=== PATIENT | female | born 1995 | race Caucasian/White ===

== ENCOUNTER 2019-01-17 22:09 | Emergency (ER) | payer MEDICAID ==
[~2019-01-17] VITALS: Ht 162.6 cm; Wt 111.0 kg
[~2019-01-17 22:09] MED LIST: ISON300T19; MINO50CA5; PYRI100T2
[2019-01-18 03:58] LABS: BASOPHILS % 0.5 % (0.0-2.0); EOSINOPHILS % 1.7 % (0.0-5.0); HEMATOCRIT. 37.4 % (36.0-48.0); HEMOGLOBIN. 12.3 g/dL (12.0-16.0); LYMPHOCYTES % 30.8 % (20.0-50.0); MEAN CORPUSCULAR HEMOGLOBIN 26.1 pg (28.0-32.0); MEAN CORPUSCULAR VOLUME 79.2 fL (81.0-99.0); MEAN PLATELET VOLUME 7.7 fl (7.4-10.4); MONOCYTES % 6.5 % (2.0-8.0); NEUTROPHILS % 60.5 % (40.0-76.0); PLATELET 252 x1000/uL (130-400); RED BLOOD CELL COUNT 4.72 mill/uL (4.2-5.4); RED CELL DISTRIBUTION WIDTH 14.6 % (11.6-14.6)
[2019-01-18 04:03] LABS: CHLORIDE 107 mEq/L (98-107); INR 1.1; PROTHROMBIN TIME 10.9 sec (9.6-11.0)
[2019-01-18 05:04] LABS: CLARITY URINE CLOUDY (CLEAR); COLOR URINE YELLOW (YELLOW); KETONES URINE TRACE (NEGATIVE); LEUKOCYTE ESTERASE URINE NEGATIVE (NEGATIVE); NITRITE URINE NEGATIVE (NEGATIVE); OCCULT BLOOD URINE NEGATIVE (NEGATIVE); PROTEIN URINE TRACE (NEGATIVE); SPECIFIC GRAVITY URINE 1.045 (1.005-1.030)
[2019-01-18 06:30] VITALS: BP 116/51
== END 2019-01-18 06:34 | disposition home or self-care (01) ==
LOC: ER 22:09
DX: K52.9 Noninfective gastroenteritis and colitis, unspecified (principal); Z79.899 Other long term (current) drug therapy
CPT/HCPCS: 36415; 74176; 81003; 81025; 99284

== ENCOUNTER 2019-11-28 09:51 | Emergency (ER) | payer MEDICAID, OTHER ==
[~2019-11-28] VITALS: Ht 162.6 cm; Wt 87.0 kg
[~2019-11-28 09:51] MED LIST changes: +PYRI100T17; -PYRI100T2
[2019-11-28 10:55] LABS: CLARITY URINE CLOUDY (CLEAR); COLOR URINE YELLOW (YELLOW); KETONES URINE NEGATIVE (NEGATIVE); LEUKOCYTE ESTERASE URINE 3+ (NEGATIVE); NITRITE URINE NEGATIVE (NEGATIVE); OCCULT BLOOD URINE 3+ (NEGATIVE); PROTEIN URINE 1+ (NEGATIVE); SPECIFIC GRAVITY URINE 1.011 (1.005-1.030); UROBILINOGEN URINE 0.2 E.U./dL (0.2-1.0)
[2019-11-28 12:50] VITALS: BP 123/67
== END 2019-11-28 12:53 | disposition home or self-care (01) ==
LOC: ER 09:51
DX: N39.0 Urinary tract infection, site not specified (principal); R00.0 Tachycardia, unspecified
CPT/HCPCS: 81003; 81025; 87077; 87186; 99283

== ENCOUNTER 2020-03-26 12:05 | Emergency (ER) | payer MEDICAID, OTHER ==
[~2020-03-26] VITALS: Ht 160 cm; Wt 90.7 kg
[2020-03-26 13:16] VITALS: BP 133/86
== END 2020-03-26 13:17 | disposition home or self-care (01) ==
LOC: ER 12:05
DX: B34.9 Viral infection, unspecified (principal); N64.89 Other specified disorders of breast; R03.0 Elevated blood-pressure reading, without diagnosis of hypertension
CPT/HCPCS: 99282

== ENCOUNTER 2021-02-20 08:37 | Emergency (ER) | payer SELFPAY ==
[~2021-02-20] VITALS: Ht 162.6 cm; Wt 105.0 kg
[2021-02-20 09:17] LABS: BASOPHILS % 0.6 % (0.0-2.0); EOSINOPHILS % 1.1 % (0.0-5.0); HEMATOCRIT. 40.8 % (36.0-48.0); HEMOGLOBIN. 13.5 g/dL (12.0-16.0); LYMPHOCYTES % 22.1 % (20.0-50.0); MEAN CORPUSCULAR HEMOGLOBIN 26.3 pg (28.0-32.0); MEAN CORPUSCULAR VOLUME 79.4 fL (81.0-99.0); MEAN PLATELET VOLUME 7.6 fl (7.4-10.4); MONOCYTES % 5.8 % (2.0-8.0); NEUTROPHILS % 70.4 % (40.0-76.0); PLATELET 297 x1000/uL (130-400); RED BLOOD CELL COUNT 5.15 mill/uL (4.2-5.4); RED CELL DISTRIBUTION WIDTH 14.5 % (11.6-14.6)
[2021-02-20 09:21] LABS: CHLORIDE 108 mEq/L (98-107)
[2021-02-20 09:31] LABS: T4 FREE 1.04 ng/dL (0.76-1.46)
[2021-02-20 10:27] VITALS: BP 132/83
== END 2021-02-20 10:27 | disposition home or self-care (01) ==
LOC: ER 08:37
DX: E04.1 Nontoxic single thyroid nodule (principal); R03.0 Elevated blood-pressure reading, without diagnosis of hypertension
CPT/HCPCS: 36415; 76536; 80048; 81025; 84439; 84443; 85025; 99284

== ENCOUNTER 2024-01-08 11:10 | Emergency (ER) | payer BC, MEDICAID, OTHER ==
[~2024-01-08] VITALS: Ht 172.7 cm; Wt 100.0 kg
[2024-01-08 11:18] VITALS: TEMP 98.1; O2SAT 98
[2024-01-08 11:59] LABS: BASOPHILS % 0.2 % (0.0-2.0); EOSINOPHILS % 1.3 % (0.0-5.0); HEMATOCRIT. 39.2 % (36.0-48.0); LYMPHOCYTES % 17.5 % (20.0-50.0); MEAN CORPUSCULAR HEMOGLOBIN 26.8 pg (28.0-32.0); MEAN CORPUSCULAR HGB CONC 33.1 g/dL (31.0-37.0); MEAN CORPUSCULAR VOLUME 80.9 fL (81.0-99.0); MEAN PLATELET VOLUME 7.8 fl (7.4-10.4); PLATELET 255 x1000/uL (130-400); RED BLOOD CELL COUNT 4.85 mill/uL (4.2-5.4); RED CELL DISTRIBUTION WIDTH 14.3 % (11.6-14.6)
[2024-01-08 12:06] LABS: CHLORIDE 105 mEq/L (98-107); POTASSIUM 3.9 mEq/L (3.5-5.1); SODIUM 137 mEq/L (136-145)
[2024-01-08 12:07] LABS: CALCIUM 9.6 mg/dL (8.7-10.4); CARBON DIOXIDE 26 mEq/L (21-32)
[2024-01-08 12:12] LABS: CREATININE 0.5 mg/dL (0.6-1.0); GLUCOSE 107 mg/dL (70-105); UREA NITROGEN BLOOD 8 mg/dL (9-23)
[2024-01-08 12:17] LABS: TROPONIN I HIGH SENSITIVITY < 4 ng/L (3.0-34)
[2024-01-08 14:30] VITALS: BP 127/78; PULSE 77; RESP 14; O2SAT 99
== END 2024-01-08 14:31 | disposition home or self-care (01) ==
LOC: ER 11:10
DX: R07.89 Other chest pain (principal); Z68.33 Body mass index [BMI] 33.0-33.9, adult
CPT/HCPCS: 36415; 71045; 80048; 84484; 85025; 93005; 99285